=== PATIENT | female | born 1955 | race Caucasian/White ===

== ENCOUNTER 2022-07-14 13:40 | Outpatient (CLI) | payer MEDICARE, BC | END 2022-07-14 13:41 | disposition home or self-care (01) | LOC: BICMAMMO 13:40 | PROVIDERS: ATTEND Nurse Practitioner Family | DX: Z13.820 Encounter for screening for osteoporosis (principal); Z78.0 Asymptomatic menopausal state | CPT/HCPCS: 77063; 77067; 77080 ==

== ENCOUNTER 2023-09-29 13:21 | Outpatient (CLI) | payer MEDICARE | END 2023-09-29 13:22 | disposition home or self-care (01) | LOC: BICRAD 13:21 | PROVIDERS: ATTEND Family Medicine | DX: R09.89 Other specified symptoms and signs involving the circulatory and respiratory systems (principal) | CPT/HCPCS: 71046 ==

== ENCOUNTER 2023-11-25 13:40 | Outpatient (CLI) | payer MEDICARE | END 2023-11-25 13:41 | disposition home or self-care (01) | LOC: BICMAMMO 13:40 | PROVIDERS: ATTEND Family Medicine | DX: Z12.31 Encounter for screening mammogram for malignant neoplasm of breast (principal) | CPT/HCPCS: 77063; 77067 ==

== ENCOUNTER 2025-04-14 13:20 | Outpatient (CLI) | payer MEDICARE | END 2025-04-14 13:21 | disposition home or self-care (01) | LOC: BICRAD 13:20 | PROVIDERS: ATTEND Physician Assistant | DX: M54.2 Cervicalgia (principal); M47.812 Spondylosis without myelopathy or radiculopathy, cervical region | CPT/HCPCS: 72052 ==